=== PATIENT | female | born 1980 | race Caucasian/White ===

== ENCOUNTER 2017-01-16 12:54 | Emergency (ER) | payer MEDICAID ==
[~2017-01-16] VITALS: Wt 69.5 kg
[2017-01-16] MEDS ORDERED: LIDOCAINE/MYLANTA 40 ML BTL PO ONE (13:30)
[2017-01-16] MEDS ORDERED: FAMO-96 PO (14:04)
--- NOTE | 2017-01-16 14:43 | ERD ---
ER Documentation Chief Complaint Date/Time DATE: 01/16/17 TIME: 14:39 Chief Complaint ANXIETY, SOB, NO CP HPI 36-year-old female patient with no significant past medical history presents to the ED complaining of feeling a choking sensation after drinking juice and eating a small piece of cheese 20 minutes ago. Denies aspiration of food. Reports that she feels like something in in her chest. States that she has dry mouth. Reports that she had some slight redness of breath. Denies any chest pain, abdominal pain, nausea, vomiting, diarrhea, change in phonation, dysphagia , odynophagia. ROS All systems reviewed and are negative except as per history of present illness. Medications Home Meds Active Scripts Famotidine* (Pepcid*) 20 Mg Tablet, 20 MG PO BID, #20 TAB Prov:DARI PAREDES PA-C 01/16/17 PMhx/Soc Medical and Surgical Hx: pt denies Medical Hx, pt denies Surgical Hx Hx Alcohol Use: No Hx Substance Use: No Hx Tobacco Use: No Smoking Status: Never smoker Physical Exam Vitals Vital Signs Date Time Temp Pulse Resp B/P Pulse Ox O2 Delivery O2 Flow Rate FiO2 01/16/17 12:59 98.0 99 18 143/93 100 Physical Exam Const: [id number]-ttu-[id number], well-nourished. In no acute distress. Head: Atraumatic, normocephalic Eyes: Normal Conjunctiva without injection. No purulent discharge. PERRL. EOMI ENT: Normal external ear. Ear canal without erythema. Tympanic membrane pearly gurrola without effusion or bulging. Nasal canal clear with normal turbinates. Moist oropharynx without tonsillar exudates. Non-erythematous pharynx. Uvula midline. No drooling. No trismus. Neck: Full range of motion. No meningismus. No cervical lymphadenopathy. Resp: Clear to auscultation bilaterally. No wheezing, rhonchi, rales, or crackles. No accessory muscle use. No retractions. Cardio: Regular rate and rhythm. No murmurs, rubs or gallops. Abd: Soft, non tender, non distended. Normal bowel sounds. No palpable masses. No rebound tenderness. No guarding. Skin: No petechiae or rashes. Back: No midline tenderness. No CVA tenderness. Ext: No cyanosis, or edema. Neur: Awake and alert. Psych: Normal Mood and Affect Results 24 hrs Current Medications Medications (Trade) Dose Ordered Sig/Alice Route PRN Reason Start Time Stop Time Status Last Admin Dose Admin Miscellaneous Medication (Gi Cocktail (2)) 40 ml ONCE ONCE PO 01/16/17 13:30 01/16/17 13:31 DC 01/16/17 13:29 Procedures/MDM This is a 36-year-old female patient with no significant past medical history presents to the ED complaining of a choking sensation after drinking juice and eating a small piece of cheese 20 minutes ago. Patient is afebrile and nontoxic -appearing. Patient was given a GI cocktail here in the ED with improvement of her symptoms. Patient also likely had an anxiety reaction with the choking sensation. Patient was speaking full sentences. Low suspicion for anaphylaxis , acute respiratory distress, foreign body aspiration, acute myocardial infarction, pneumothorax, pneumonia, cardiac tamponade, pulmonary embolism, pleural effusion, AAA, aortic dissection, Boerhaave's syndrome, cardiac dysrhythmias,meningitis, intracranial bleed, seizure, stroke, TIA or other emergent conditions. Discharge medications: Famotidine Follow up with primary care physician in 1-2 days. Instructed patient to return to the ED sooner for any worsening symptoms. Patient's questions were answered. Patient understood and agreed with discharge plan. Patient discharged stable. Departure Diagnosis: Primary Impression: Choking sensation Condition: Stable Patient Instructions: First Aid: Choking, Anxiety Reaction Referrals: [facility] YOU HAVE RECEIVED A MEDICAL SCREENING EXAM AND THE RESULTS INDICATE THAT YOU DO NOT HAVE A CONDITION THAT REQUIRES URGENT TREATMENT IN THE EMERGENCY DEPARTMENT. FURTHER EVALUATION AND TREATMENT OF YOUR CONDITION CAN WAIT UNTIL YOU ARE SEEN IN YOUR DOCTORS OFFICE WITHIN THE NEXT 1-2 DAYS. IT IS YOUR RESPONSIBILITY TO MAKE AN APPOINTMENT FOR FOLOW-UP CARE. IF YOU HAVE A PRIMARY DOCTOR --you should call your primary doctor and schedule an appointment IF YOU DO NOT HAVE A PRIMARY DOCTOR YOU CAN CALL OUR PHYSICIAN REFERRAL HOTLINE AT IF YOU CAN NOT AFFORD TO SEE A PHYSICIAN YOU CAN CHOSE FROM THE FOLLOWING [facility] [address] [facility]. [facility] [address] [facility]. [facility] [address] [facility]. [facility] [address] [facility]. [facility] [address] [facility]. [facility] [address] [facility]. [facility] YOU HAVE RECEIVED A MEDICAL SCREENING EXAM AND THE RESULTS INDICATE THAT YOU DO NOT HAVE A CONDITION THAT REQUIRES URGENT TREATMENT IN THE EMERGENCY DEPARTMENT. FURTHER EVALUATION AND TREATMENT OF YOUR CONDITION CAN WAIT UNTIL YOU ARE SEEN IN YOUR DOCTORS OFFICE WITHIN THE NEXT 1-2 DAYS. IT IS YOUR RESPONSIBILITY TO MAKE AN APPOINTMENT FOR FOLOW-UP CARE. IF YOU HAVE A PRIMARY DOCTOR --you should call your primary doctor and schedule and appointment IF YOU DO NOT HAVE A PRIMARY DOCTOR YOU CAN CALL OUR PHYSICIAN REFERRAL HOTLINE AT . IF YOU CAN NOT AFFORD TO SEE A PHYSICIAN YOU CAN CHOSE FROM THE FOLLOWING [facility], [facility] INSTITUTIONS: [facility] [address] [place] [address] [facility] [address] [place], [place] [id number] [place] [address] + [facility] [address] [place] [address] [facility] URGENT CARE/SPECIALTIES Additional Instructions: Llame al doctor MAANA y theresa les LOUIS PARA DENTRO DE 1-2 MENDEZ.Dgale a la secretaria que nosotros le instruimos hacer esta louis.Avise o llame si bynum condicin se empeora antes de la louis. Regresa aqui si peor o no mejor. DARI PAREDES PA-C Jan 16, 2017 14:42
== END 2017-01-16 14:28 | disposition home or self-care (01) ==
LOC: FTE 12:54
DX: R09.89 Other specified symptoms and signs involving the circulatory and respiratory systems (principal)
CPT/HCPCS: Z7502; Z7610; 99283

== ENCOUNTER 2017-02-19 22:30 | Emergency (ER) | payer SELFPAY ==
[~2017-02-19] VITALS: Ht 165.1 cm; Wt 69.0 kg
[~2017-02-19 22:30] MED LIST: FAMO-96 PO
[2017-02-19 22:41] VITALS: Ht 165.1 cm; Wt 69.0 kg
== END 2017-02-20 00:25 | disposition left against medical advice (07) ==
LOC: E/R 22:30
DX: Z53.21 Procedure and treatment not carried out due to patient leaving prior to being seen by health care provider (principal)

== ENCOUNTER 2017-08-12 20:55 | Emergency (ER) | END 2017-08-12 22:41 | disposition left against medical advice (07) ==

== ENCOUNTER 2018-08-03 01:11 | Emergency (ER) | payer MEDICAID ==
[~2018-08-03] VITALS: Ht 162.6 cm; Wt 68.4 kg
[~2018-08-03 01:11] MED LIST changes: +IBUP-1542 PO
[2018-08-03 01:15] VITALS: BP 138/77; PULSE 94; RESP 18; Ht 162.6 cm; Wt 68.4 kg
[2018-08-03] MEDS ORDERED: ACETAMINOPHEN 325 MG TAB PO STA (03:10)
--- NOTE | 2018-08-08 04:31 | ERD ---
ER Documentation Chief Complaint Chief Complaint vaginal bleeding with clot x 30 minutes, states 12 weeks HPI 37 year-old [female] coming in today with Chief Complaint: vaginal bleeding History of Present Illness: Has been bringing patient in today with complaint of vaginal bleeding with large clot that last about 30 minutes prior to arrival. Patient reports being approximately 12 weeks . Patient reports mild bleeding at this time. Mild clot passed at approximately 1 AM. Patient has clot that was passed present during examination. Review of systems: All systems were reviewed and are negative except for what is indicated in the history of present illness. Past Medical History: [Negative for hypertension, diabetes or other medical problems] Social History: [Patient denies tobacco, alcohol, elicit drug use] Medications: [None] Allergies: [NKDA] Social Concerns: Denies ROS All systems reviewed and are negative except as per history of present illness. Medications Home Meds Active Scripts Ibuprofen* (Ibuprofen*) 600 Mg Tablet, 600 MG PO Q8 for PAIN AND/OR INFLAMMATION, #30 TAB Prov:RENEE JOHNSON MD 11/16/17 Famotidine* (Pepcid*) 20 Mg Tablet, 20 MG PO BID, #20 TAB Prov:DARI PAREDES PA-C 01/16/17 Allergies Allergies: Coded Allergies: No Known Allergy (Unverified , 11/16/17) PMhx/Soc History of Surgery: Yes () Anesthesia Reaction: No Hx Neurological Disorder: No Hx Respiratory Disorders: No Hx Cardiac Disorders: Yes (HTN) Hx Psychiatric Problems: No Hx Miscellaneous Medical Probl: No Hx Alcohol Use: No Hx Substance Use: No Hx Tobacco Use: No Smoking Status: Never smoker FmHx Family History: coronary disease, other; No diabetes Physical Exam Vitals Physical Exam Const: No acute distress Head: Atraumatic Eyes: Normal Conjunctiva ENT: Normal External Ears, Nose and Mouth. Neck: Full range of motion. No meningismus. Resp: Clear to auscultation bilaterally Cardio: Regular rate and rhythm, no murmurs Abd: Soft, non tender, non distended. Normal bowel sounds Skin: No petechiae or rashes Back: No midline or flank tenderness Ext: No cyanosis, or edema Neur: Awake and alert Psych: Normal Mood and Affect Vaginal exam deferred. Patient refused after finding ultrasound results. Results 24 hrs Laboratory Tests Test 08/03/18 03:26 White Blood Count 13.2 10^3/ul Red Blood Count 4.25 10^6/ul Hemoglobin 13.3 g/dl Hematocrit 39.8 % Mean Corpuscular Volume 93.6 fl Mean Corpuscular Hemoglobin 31.3 pg Mean Corpuscular Hemoglobin Concent 33.4 g/dl Red Cell Distribution Width 11.7 % Platelet Count 377 10^3/UL Mean Platelet Volume 9.5 fl Immature Granulocytes % 0.700 % Neutrophils % 78.2 % Lymphocytes % 16.3 % Monocytes % 4.1 % Eosinophils % 0.1 % Basophils % 0.6 % Nucleated Red Blood Cells % 0.0 /100WBC Immature Granulocytes # 0.090 10^3/ul Neutrophils # 10.4 10^3/ul Lymphocytes # 2.2 10^3/ul Monocytes # 0.5 10^3/ul Eosinophils # 0.0 10^3/ul Basophils # 0.1 10^3/ul Nucleated Red Blood Cells # 0.0 10^3/ul Urine Color YELLOW Urine Clarity CLEAR Urine pH 6.0 Urine Specific [place] 1.012 Urine Ketones NEGATIVE mg/dL Urine Nitrite NEGATIVE mg/dL Urine Bilirubin NEGATIVE mg/dL Urine Urobilinogen NEGATIVE mg/dL Urine Leukocyte Esterase NEGATIVE Renetta/ul Urine Microscopic RBC 25 /HPF Urine Microscopic WBC 4 /HPF Urine Squamous Epithelial Cells FEW /HPF Urine Bacteria FEW /HPF Urine Mucus FEW /HPF Urine Hemoglobin 2+ mg/dL Urine Glucose NEGATIVE mg/dL Urine Total Protein NEGATIVE mg/dl Beta HCG, Quantitative 60876.0 mIU/ml Current Medications Medications Dose Sig/Alice Start Time Status Last (Trade) Ordered Route PRN Stop Time Admin Dose Reason Admin 650 mg ONCE STAT 08/03/18 DC 08/03/18 Acetaminophen PO 03:10 03:33 (Tylenol 08/03/18 03:29 Tab) Procedures/MDM ED course includes a thorough examination and history. ED course includes labs; CBC, CMP, hCG quantitative. ED course include testing; ob abdominal and transvaginal ultrasound. ED course includes sending large blood clot that patient brought in to pathology, cytology with formalin. Otherwise healthy patient presenting with constellation of symptoms likely representing vaginal bleeding during , threatened as characterized by history, physical exam findings ultrasound/lab findings]. CBC within normal, limits no signs of anemia or infection, WBC 13 but not likely due to infection. HCG ~95,000. UA with hemoglobin, no infection. Ultrasound shows live intrauterine , HR 166, estimated gestational age of 12 weeks 5 days, no evidence of subchorionic hemorrhage is seen. No respiratory distress, otherwise relatively well appearing and nontoxic. Patient educated on diagnoses, prescriptions, follow-up care, return precautions. Strict return precautions given for worsening condition; questions answered discharge. Disposition for discharge with followup in 1-2 days with [employer]. Departure Diagnosis: Primary Impression: Threatened miscarriage Additional Impression: Vaginal bleeding during Condition: Stable Patient Instructions: Vaginal Bleed in [facility]errals: [facility] YOU HAVE RECEIVED A MEDICAL SCREENING EXAM AND THE RESULTS INDICATE THAT YOU DO NOT HAVE A CONDITION THAT REQUIRES URGENT TREATMENT IN THE EMERGENCY DEPARTMENT. FURTHER EVALUATION AND TREATMENT OF YOUR CONDITION CAN WAIT UNTIL YOU ARE SEEN IN YOUR DOCTORS OFFICE WITHIN THE NEXT 1-2 DAYS. IT IS YOUR RESPONSIBILITY TO MAKE AN APPOINTMENT FOR FOLOW-UP CARE. IF YOU HAVE A PRIMARY DOCTOR --you should call your primary doctor and schedule an appointment IF YOU DO NOT HAVE A PRIMARY DOCTOR YOU CAN CALL OUR PHYSICIAN REFERRAL HOTLINE AT IF YOU CAN NOT AFFORD TO SEE A PHYSICIAN YOU CAN CHOSE FROM THE FOLLOWING [facility] [address] [facility]. [facility] [address] [facility]. [facility] [address] [facility]. [facility] [address] [facility]. [facility] [address] [facility]. [facility]. [address] [facility]. [facility] YOU HAVE RECEIVED A MEDICAL SCREENING EXAM AND THE RESULTS INDICATE THAT YOU DO NOT HAVE A CONDITION THAT REQUIRES URGENT TREATMENT IN THE EMERGENCY DEPARTMENT. FURTHER EVALUATION AND TREATMENT OF YOUR CONDITION CAN WAIT UNTIL YOU ARE SEEN IN YOUR DOCTORS OFFICE WITHIN THE NEXT 1-2 DAYS. IT IS YOUR RESPONSIBILITY TO MAKE AN APPOINTMENT FOR FOLOW-UP CARE. IF YOU HAVE A PRIMARY DOCTOR --you should call your primary doctor and schedule and appointment IF YOU DO NOT HAVE A PRIMARY DOCTOR YOU CAN CALL OUR PHYSICIAN REFERRAL HOTLINE AT . IF YOU CAN NOT AFFORD TO SEE A PHYSICIAN YOU CAN CHOSE FROM THE FOLLOWING [facility] INSTITUTIONS: [facility] [address] [place] [address] [facility] [address] [place] [address] [facility] [address] [place] [address] [employer] [place] [address] [facility] [address] [place] [address] OFFICE FAX , [facility] [address] [place], [place] [id number] [place] [place] [address] [place] [address] [address], [facility] [address] [facility], [address] [facility] [address] [address] [facility] [address] [place] [address] [facility] [address] [place] [address] [address] [facility] [address] - [place] [address] [address], [facility] [address] [address] [address] [facility]. [address], [facility] [address] [address] [address] [place], [place] [id number] Additional Instructions: Call your primary care doctor TOMORROW for an appointment during the next 1-2 days.See the doctor sooner or return here if your condition worsens before your appointment time.Call your primary care doctor TOMORROW for an appointment during the next 2-3 days.See the doctor sooner or return here if your condition worsens before your appointment time. Call you [employer] today for appointment. Tell her about ER visit due to bleeding. KATHIE THOMPSON NP Aug 05, 2018 11:15
== END 2018-08-03 06:37 | disposition home or self-care (01) ==
LOC: FTE 01:11
DX: O20.0 Threatened abortion (principal); O10.011 Pre-existing essential hypertension complicating pregnancy, first trimester; Z3A.12 12 weeks gestation of pregnancy
CPT/HCPCS: 36415; 76801; 81001; 84702; 85025; 88305; Z7502; Z7610